=== PATIENT | female | born 1985 | race Caucasian/White ===

== ENCOUNTER 2017-06-05 08:00 | Outpatient (CLI) | payer MEDICAID ==
[2017-06-05 12:41] LABS: BASOPHILS % (AUTO) 0.4 %; EOSINOPHILS # (AUTO) 0.2 10^3/uL (0.0-0.7); EOSINOPHILS % (AUTO) 2.9 %; LYMPHOCYTES # (AUTO) 2.6 10^3/uL (1.5-3.5); MEAN CORPUSCULAR HEMOGLOBIN 30.5 pg (27.0-31.0); MEAN CORPUSCULAR HGB CONC 34.3 g/dL (32.0-36.0); MEAN PLATELET VOLUME 8.2 fL (7.9-10.8); MONOCYTES # (AUTO) 0.4 10^3/uL (0.0-1.0); MONOCYTES % (AUTO) 6.8 %; NEUTROPHILS # (AUTO) 2.8 10^3/uL (1.5-6.6); NEUTROPHILS % (AUTO) 46.9 %; PLT - PLATELET COUNT 234 10^3/uL (130-450); RED BLOOD COUNT 4.26 10^6/uL (4.20-5.40); RED CELL DISTRIBUTION WIDTH 13.5 % (12.0-15.0)
[2017-06-05 13:17] LABS: ALBUMIN 3.5 g/dL (3.2-5.5); ALBUMIN/GLOBULIN RATIO 1.1 (1.0-2.2); ALKALINE PHOSPHATASE 46 IU/L (42-121); ALT ALANINE AMINOTRANSFERASE 25 IU/L (10-60); AST ASPARTATE AMINOTRANSFERASE 17 IU/L (10-42); BILIRUBIN,TOTAL 0.8 mg/dL (0.2-1.0); BUN - BLOOD UREA NITROGEN 13 mg/dL (6-20); CALCIUM 8.2 mg/dL (8.5-10.3); CARBON DIOXIDE - CO2 24 mmol/L (21-32); CHLORIDE 108 mmol/L (101-111); CHOL/HDL RATIO 6.5 (<4.4); CHOLESTEROL 168 mg/dL; CREATININE 0.7 mg/dL (0.4-1.0); GFR - MDRD 98 (>89); GLUCOSE 92 mg/dL (70-100); HDL CHOLESTEROL 26 mg/dL; LDL CHOLESTEROL,CALCULATED 119 mg/dL; LDL/HDL RATIO 4.6 (<4.4); SODIUM 136 mmol/L (135-145); TOTAL PROTEIN 6.7 g/dL (6.7-8.2); VLDL CHOLESTEROL 23 mg/dL
== END 2017-06-05 08:01 | disposition home or self-care (01) ==
LOC: LAB.N 08:00
PROVIDERS: ATTEND Nurse Practitioner Gerontology
DX: Z13.9 Encounter for screening, unspecified (principal)
CPT/HCPCS: 36415; 80050; 80061; 83721

== ENCOUNTER 2018-03-31 07:48 | Outpatient (CLI) | payer OTHER | END 2018-03-31 07:49 | disposition home or self-care (01) | LOC: LAB 07:48 | PROVIDERS: ATTEND Nurse Practitioner Obstetrics & Gynecology | DX: Z53.9 Procedure and treatment not carried out, unspecified reason (principal) | CPT/HCPCS: 36415; 82947; 82951; 83036; 84443 ==

== ENCOUNTER 2018-04-01 09:11 | Outpatient (CLI) | payer OTHER ==
[2018-04-02 19:34] LABS: HB2 TOTAL 14.4 g/dL; HEMOGLOBIN A1C 0.43 g/dL; HEMOGLOBIN A1C % 4.9 % (4.6-6.2)
== END 2018-04-01 09:12 | disposition home or self-care (01) ==
LOC: LAB 09:11
PROVIDERS: ATTEND Nurse Practitioner Obstetrics & Gynecology
DX: E66.9 Obesity, unspecified (principal)
CPT/HCPCS: 36415; 82947; 82951; 83036; 84443

== ENCOUNTER 2019-05-04 06:20 | Emergency (ER) | payer OTHER ==
--- NOTE | 2019-05-04 07:03 | ED Physician Documentation ---
PD HPI CHEST PAIN - Stated complaint Stated Complaint: CHEST PX,SOA - Chief complaint Chief Complaint: Cardiac - History obtained from History obtained from: Patient - History of Present Illness Timing - onset: Today Timing - onset during: Rest (awoke this morning with pain in sternal area that radiates to left pectoral area. Worse with movement and lying on left side.) Timing - duration: Hours (1-2) Timing - details: Abrupt onset, Now resolved Quality: Aching, Sharp, Pain Location: Substernal, Left chest Radiation: Left upper extremity (anterior shoulder) Improved by: Rest Worsened by: Movement, Palpation. No: Inspiration Associated symptoms: No: Shortness of air, Nausea, Feeling faint / dizzy, Palpitations Similar symptoms before: Has not had sx before Review of Systems Constitutional: denies: Fever, Chills Nose: denies: Rhinorrhea / runny nose, Congestion Throat: denies: Sore throat Cardiac: reports: Chest pain / pressure. denies: Palpitations, Pedal edema, Calf pain Respiratory: denies: Cough GI: denies: Abdominal Pain, Nausea, Vomiting Skin: denies: Rash, Lesions Musculoskeletal: denies: Back pain Neurologic: denies: Focal weakness, Numbness PD PAST MEDICAL HISTORY - Past Medical History Respiratory: Pneumonia - Past Surgical History Past Surgical History: No - Present Medications Home Medications: Ambulatory Orders Medication Instructions Recorded Confirmed Famotidine 20 mg PO DAILY #15 tablet 05/04/19 Ibuprofen [Motrin] 600 mg PO TID PRN #25 tab 05/04/19 - Allergies Allergies/Adverse Reactions: Allergies Allergy/AdvReac Type Severity Reaction Status Date / Time No Known Drug Allergies Allergy Verified 01/26/16 17:26 - Social History Does the pt smoke?: No Smoking Status: Never smoker Does the pt drink ETOH?: No Does the pt have substance abuse?: No - Immunizations Immunizations are current?: Yes PD ED PE NORMAL - Vitals Vital signs reviewed: Yes - General General: Alert and oriented X 3, No acute distress, Well developed/nourished - HEENT HEENT: Pharynx benign - Neck Neck: Supple, no meningeal sign, No adenopathy - Cardiac Cardiac: RRR, No murmur - Respiratory Respiratory: Clear bilaterally, Other (left chest wall on sternal border and to left pectoral area with tenderness to palpation. ) - Abdomen Abdomen: Normal bowel sounds, Soft, Non tender, Non distended - Derm Derm: Normal color, Warm and dry - Extremities Extremities: No tenderness to palpate, Normal ROM s pain, No edema, No calf tenderness / cord - Neuro Neuro: Alert and oriented X 3, No motor deficit, Normal speech Results - Vitals Vitals: Oxygen O2 Source Room air - EKG (time done) 06:34 Rate: Rate (enter#) (97) Rhythm: NSR Bells: Normal Intervals: Normal TN QRS: Normal Ischemia: Normal ST segments, ST elevation c/w repol (diffusely, mostly anterolateral). No: ST elevation c/w ischemia, ST depression - Labs Labs: Laboratory Tests 05/04/19 05/04/19 05/04/19 06:50 06:50 06:50 WBC 10.3 RBC 4.52 Hgb 13.5 Hct 41.1 MCV 90.9 MCH 29.9 MCHC 32.8 RDW 13.0 Plt Count 343 MPV 9.0 Neut # (Auto) 7.9 H Lymph # (Auto) 1.7 Johnson # (Auto) 0.6 Eos # (Auto) 0.1 Baso # (Auto) 0.1 Absolute Nucleated RBC 0.00 Nucleated RBC % 0.0 Sodium 138 Potassium 4.2 Chloride 103 Carbon Dioxide 26 Anion Gap 9.0 BUN 17 Creatinine 0.8 Estimated GFR (MDRD) 83 L Glucose 112 H Calcium 8.9 Total Bilirubin 0.8 AST 22 ALT 37 Alkaline Phosphatase 50 Troponin I High Sens 2.5 Total Protein 7.6 Albumin 3.8 Globulin 3.8 Albumin/Globulin Ratio 1.0 Lipase 29 Serum HCG, Qual 05/04/19 06:50 WBC RBC Hgb Hct MCV MCH MCHC RDW Plt Count MPV Neut # (Auto) Lymph # (Auto) Johnson # (Auto) Eos # (Auto) Baso # (Auto) Absolute Nucleated RBC Nucleated RBC % Sodium Potassium Chloride Carbon Dioxide Anion Gap BUN Creatinine Estimated GFR (MDRD) Glucose Calcium Total Bilirubin AST ALT Alkaline Phosphatase Troponin I High Sens Total Protein Albumin Globulin Albumin/Globulin Ratio Lipase Serum HCG, Qual NEGATIVE - Rads (name of study) chest xray Radiology: Prelim report reviewed (no acute process), See rad report PD MEDICAL DECISION MAKING - ED course Complexity details: reviewed results, considered differential, d/w patient Departure - Departure Disposition: 01 Home, Self Care Clinical Impression: Chest wall pain Condition: Stable Record reviewed to determine appropriate education?: Yes Instructions: ED Chest Pain Costochondritis Follow-Up: Neena Olmos ARNP [Primary Care Provider] - Prescriptions: Famotidine 20 mg PO DAILY #15 tablet Ibuprofen [Motrin] 600 mg PO TID PRN #25 tab PRN Reason: Pain Comments: Your EKG chest x-ray and blood tests are normal. No signs of more significant cause of the chest pain. It does have characteristics of musculoskeletal pain so take some ibuprofen 3 times a day for the next 5 or 6 days for that. Add Tylenol if needed for pain. Use famotidine acid reducing medicine to protect the stomach. Recheck if not improving over the next several days return sooner if other symptoms develop or worsening pain. Forms: Activity restrictions Discharge Date/Time: 05/04/19 07:57
[2019-05-04 07:10] LABS: BASOPHILS # (AUTO) 0.1 10^3/uL (0.0-0.1); BASOPHILS % (AUTO) 0.5 %; EOSINOPHILS # (AUTO) 0.1 10^3/uL (0.0-0.7); EOSINOPHILS % (AUTO) 1.1 %; HGB - HEMOGLOBIN 13.5 g/dL (12.0-16.0); LYMPHOCYTES # (AUTO) 1.7 10^3/uL (1.5-3.5); LYMPHOCYTES % (AUTO) 16.2 %; MEAN CORPUSCULAR HEMOGLOBIN 29.9 pg (27.0-31.0); MEAN CORPUSCULAR HGB CONC 32.8 g/dL (32.0-36.0); MEAN CORPUSCULAR VOLUME 90.9 fL (81.0-99.0); MONOCYTES # (AUTO) 0.6 10^3/uL (0.0-1.0); MONOCYTES % (AUTO) 5.5 %; NEUTROPHILS # (AUTO) 7.9 10^3/uL (1.5-6.6); NEUTROPHILS % (AUTO) 76.3 %; PLT - PLATELET COUNT 343 10^3/uL (130-450); RED BLOOD COUNT 4.52 10^6/uL (4.20-5.40); WHITE BLOOD COUNT 10.3 x10^3/uL (4.8-10.8)
[2019-05-04 07:13] LABS: ALBUMIN 3.8 g/dL (3.2-5.5); BILIRUBIN,TOTAL 0.8 mg/dL (0.2-1.0); CALCIUM 8.9 mg/dL (8.5-10.3); CREATININE 0.8 mg/dL (0.4-1.0); TOTAL PROTEIN 7.6 g/dL (6.7-8.2)
[2019-05-04] MEDS ORDERED: MAG HYDROX/AL HYDROX/SIMETH 30 ML UDC PO STA (07:18)
[2019-05-04] MEDS ORDERED: IBUPROFEN 600 MG TABLET PO STA (07:18)
[2019-05-04] MEDS ORDERED: LIDOCAINE VISCOUS 2% 15 ML UDC MM STA (07:18)
[2019-05-04 07:24] LABS: HCG,QUALITATIVE BLOOD NEGATIVE
--- NOTE | 2019-05-04 07:40 | XRAY Report ---
Reason: Chest Pain Procedure Date: 05/04/2019 Accession Number: [id number] / [id number] Procedure: XR - Chest 1 View X-Ray CPT Code: 41634 Final Report FULL RESULT: EXAM: CHEST RADIOGRAPHY EXAM DATE: 05/04/2019 07:14 AM. CLINICAL HISTORY: Chest Pain. COMPARISON: CHEST 2 VIEW PA/LAT 03/15/2015 3:36 AM. TECHNIQUE: 1 view. FINDINGS: Lungs/Pleura: Lung volumes are mildly lower with mild increased crowding. No new focal consolidation or large effusions. No pneumothorax. Mediastinum: Cardiac silhouette size appears unremarkable. Other: None. IMPRESSION: Lung volumes are mildly low with mild crowding. No focal lung consolidation or large effusions. [facility]
[2019-05-04 07:47] VITALS: BP 133/75
[2019-05-04] MEDS ORDERED: FAMOTIDINE 20 MG TABLET PO STA (07:50)
== END 2019-05-04 07:57 | disposition home or self-care (01) ==
LOC: ED 06:20
DX: R07.89 Other chest pain (principal)
CPT/HCPCS: 36415; 71045; 80053; 83690; 84484; 84703; 85025; 93005; 99284; A9270

== ENCOUNTER 2019-06-01 17:42 | Emergency (ER) | payer OTHER ==
--- NOTE | 2019-06-01 18:22 | ED Physician Documentation ---
History of Present Illness - Stated complaint Stated Complaint: RT LEG PX,SWELLING,REDNESS - Chief complaint Chief Complaint: Ext Problem - History obtained from History obtained from: Patient (33-year-old female comes in today with reports of right calf pain, swelling, and redness that started yesterday. Patient denies any past medical history of a PE or DVT. She denies any shortness of breath. Patient does state that she has a "IUD in place" she believes it is a "nonhormonal IUD. She has had this in place for about 2 years now, and replaced a hormonal IUD she had previous to this. She has been ill and in bed the last 4 days she states having a low-grade fever some cough. When she got up yesterday to start ambulating around again she developed this pain in the right. She states that she feels it is warmth, and her mother stated that it looked like it was getting red back there. Patient denies pain to the popliteal region of the right leg. No other concerns today.) Review of Systems Constitutional: reports: Fatigue. denies: Fever, Chills Eyes: reports: Reviewed and negative Ears: reports: Reviewed and negative Nose: reports: Reviewed and negative Throat: reports: Reviewed and negative Cardiac: reports: Calf pain. denies: Chest pain / pressure, Palpitations Respiratory: denies: Dyspnea, Cough, Hemoptysis, Wheezing GI: denies: Nausea, Vomiting, Diarrhea : reports: Reviewed and negative Skin: reports: Reviewed and negative Musculoskeletal: reports: Reviewed and negative Neurologic: reports: Reviewed and negative Endocrine: reports: Reviewed and negative PD PAST MEDICAL HISTORY - Past Medical History Respiratory: Pneumonia - Past Surgical History Past Surgical History: No - Present Medications Home Medications: Ambulatory Orders Medication Instructions Recorded Confirmed Famotidine 20 mg PO DAILY #15 tablet 05/04/19 Ibuprofen [Motrin] 600 mg PO TID PRN #25 tab 05/04/19 - Allergies Allergies/Adverse Reactions: Allergies Allergy/AdvReac Type Severity Reaction Status Date / Time No Known Drug Allergies Allergy Verified 06/01/19 17:47 - Social History Does the pt smoke?: No Smoking Status: Never smoker Does the pt drink ETOH?: No Does the pt have substance abuse?: No - Immunizations Immunizations are current?: Yes PD ED PE NORMAL - General General: Alert and oriented X 3, No acute distress, Well developed/nourished - HEENT HEENT: Atraumatic, PERRL, EOMI, Moist mucous membranes - Neck Neck: No adenopathy - Cardiac Cardiac: RRR, No murmur - Respiratory Respiratory: No respiratory distress, Clear bilaterally - Extremities Extremities: No deformity - Neuro Neuro: Alert and oriented X 3, social work administrator 2-12 intact PD ED PE EXPANDED - Extremities Extremities: Right calf TTP/cord, Pedal Pulses Present (Tender to palp to the distal calf, without any cord noted.), Motor intact, Sensory intact, Tendon intact. No: Cold foot Results - Vitals Vitals: Vital Signs - 24 hr 06/01/19 06/01/19 17:47 19:55 Temperature 37.0 C Heart Rate 88 92 Respiratory 14 18 Rate Blood Pressure 113/75 139/92 H O2 Saturation 98 99 Oxygen O2 Source Room air - Labs Labs: Laboratory Tests 06/01/19 18:35 D-Dimer 339.6 H - Rads (name of study) No standard instances Radiology: Final report received (Ultrasound right lower extremity: No evidence for deep vein thrombosis visualized in the right lower extremity.) Departure - Departure Disposition: 01 Home, Self Care Clinical Impression: Pain of lower extremity Condition: Good Instructions: ED Muscle Pain Leg Cramps Comments: The ultrasound of your right lower leg this evening did not show any evidence of a deep vein thrombosis. You most likely have leg strain from being immobilized for a few days. Continue to stretch her calf at home and put warm compresses on her to help loosen up a bit he can also use Tylenol or ibuprofen for pain. If you have further concerns, or your leg swelling increases, follow-up with your PCP for further evaluation. If you develop shortness of breath, sudden chest pain return to the ED for evaluation.
--- NOTE | 2019-06-01 20:42 | Ultrasound Report ---
Reason: Right calf Pain, edema, warmth Procedure Date: 06/01/2019 Accession Number: [id number] / [id number] Procedure: US - Duplex Ext Veins Right CPT Code: Final Report FULL RESULT: EXAM: RIGHT LOWER EXTREMITY VENOUS ULTRASOUND EXAM DATE: 06/01/2019 07:48 PM. CLINICAL HISTORY: Right calf Pain, edema, warmth. COMPARISON: None. TECHNIQUE: Real-time sonographic vascular imaging was performed by the new car inspector through the lower extremity utilizing both color-flow and Doppler spectral analysis. Multiple area representative static images were saved for review. FINDINGS: Common Femoral Vein (CFV): Normal. CFV-GSV Junction: Normal. Profunda Femoral Vein (PFV): Normal. Femoral Vein (FV) Prox: Normal. Femoral Vein (FV) Mid: Normal. Femoral Vein (FV) Dist: Normal. Popliteal Vein: Normal. Posterior Tibial Veins: Partially visualized, visualized portions patent Peroneal Veins: Partially visualized, visual eyes portions patent Contralateral Side CFV: Normal. Other: None. IMPRESSION: No evidence for deep venous thrombosis in the visualized right lower extremity. [facility]
[2019-06-01 20:50] VITALS: BP 136/90
== END 2019-06-01 20:49 | disposition home or self-care (01) ==
LOC: ED 17:42
DX: M79.661 Pain in right lower leg (principal)
CPT/HCPCS: 36415; 85379; 99284